=== PATIENT | male | born 1990 | race Caucasian/White ===

== ENCOUNTER 2022-09-22 19:20 | Emergency (ER) | payer MEDICAID, SELFPAY ==
--- NOTE | ~2022-09-22 | CT_ITS ---
EXAMINATION: CT SOFT TISSUE NECK WITH CONTRAST CLINICAL INFORMATION: Abscess. Swelling. COMPARISON: None available. TECHNIQUE: Following the intravenous administration of 65 mL of Omnipaque 350 intravenous contrast, helical imaging was performed in the axial plane with generation of coronal and sagittal reformatted images. This CT examination was performed using dose optimization techniques as appropriate, variously including the following: *Automated exposure control *Adjustment of mA and/or kV according to patient size (this includes techniques or standardized protocols for targeted exams where dose is matched to indication/reason for exam; i.e. extremities or head) *Use of iterative reconstruction technique DLP: 482 mGy-cm FINDINGS: Rim-enhancing focal fluid collections in the bilateral posterior cervical triangle involving the posterior aspect of the sternocleidomastoid muscles and paraspinal muscles. On the right collection measures 2.7 x 2.7 x 6.4 cm. This collection extends to the right suboccipital muscles measuring 3 x 1 x 1 cm. On the left the collection measures 1.4 x 3 x 1.5 cm. There is extension of this collection to the intramuscular compartment of the left sternocleidomastoid muscle measuring 1 x 1 x 3 cm. No significant lymphadenopathy bilaterally. There are shotty small subcentimeter lymph nodes in the posterior cervical triangle bilaterally. There is normal enhancement of the vasculature. No evidence of thrombus. The pharynx, hypopharynx and nasopharynx are normal. Normal thyroid, submandibular glands and parotid glands. Paranasal sinuses are normally aerated. The visualized portions of the orbits and intracranial structures are normal. Lung apices are normally aerated. CT/CT soft tissue neck w IV con IMPRESSION: Rim-enhancing fluid collections in the bilateral posterior cervical triangle involving the posterior aspect of the sternocleidomastoid muscles and paraspinal muscles consistent with abscesses.
[2022-09-22 19:46] VITALS: BP 122/84; PULSE 127; RESP 20; TEMP 37.4; O2SAT 98; BMI 23.0
--- NOTE | 2022-09-22 19:48 | ED_ITS ---
HPI - Neck Pain/Injury General Chief Complaint: Skin/Abscess/Foreign Body <TONI Kuo - Last Filed: 09/22/22 20:06> Stated Complaint: mono? swollen lymph nodes <TONI Kuo - Last Filed: 09/22/22 20:06> Time Seen by Provider: 09/22/22 22:32 <TONI Kuo - Last Filed: 09/22/22 20:06> Source: patient <Laisha Anderson MD - Last Filed: 09/22/22 23:47> Mode of arrival: ambulatory <Laisha Anderson MD - Last Filed: 09/22/22 23:47> Limitations: no limitations <Laisha Anderson MD - Last Filed: 09/22/22 23:47> History of Present Illness HPI Narrative: patient comes to the emergency room complaining of bilateral neck swelling, pain, erythema worsening over 2 weeks.? Reports recent exposure to mono.? Denies fever, sore throat, ear pain. patient denies IV drug use. <Laisha Anderson MD - Last Filed: 09/22/22 23:47> Related Data Allergies/Adverse Reactions: Allergies Allergy/AdvReac Type Severity Reaction Status Date / Time No Known Allergies Allergy Verified 09/22/22 19:48 <TONI Kuo - Last Filed: 09/22/22 20:06> Review of Systems Review of Systems: Constitutional : No Weight loss, No Fever, No Chills, No Night Sweats, No Fatigue, No Malaise ENT/Mouth : Up complaining of growing abscesses in the posterior/lateral aspect of the neck bilaterally. No Hearing loss, No Ear Pain, No Nasal Congestion, No Sinus Pain, No Hoarseness, No sore throat, No Rhinorrhea, No Swallowing Difficulty Eyes: No Eye Pain, No Swelling, No Redness, No Foreign Body, No Discharge, No Vision Changes Cardiovascular : No Chest Pain, No SOB, No Dyspnea on Exertion, No Orthopnea, No Edema, No Palpitations Respiratory : No Cough, No Sputum, No Wheezing, No Smoke Exposure, No Dyspnea Gastrointestinal : No Nausea, No Vomiting, No Diarrhea, No Constipation, No abdominal Pain, No Hematochezia, No Melena Genitourinary : no irregular bleeding, No Dysuria, No Urinary Frequency, No Hematuria, No Urinary Incontinence, No Urgency, No Flank Pain, No Urinary Flow Changes, No Hesitancy Musculoskeletal : No joint pain, No Myalgias, No Joint Swelling Skin : No Skin Lesions, No rash Neuro : No Weakness, No Numbness, No Paresthesias, No Loss of Consciousness, No Dizziness, No Headache Psych : No Anxiety/Panic, No Depression, No SI/HI/AH/VH, No Social Issues, Heme/Lymph: No Bruising, No Bleeding,No Lymphadenopathy Endocrine : No Polyuria, No Polydipsia, No Temperature Intolerance <Laisha Anderson MD - Last Filed: 09/22/22 23:47> [facility] Social History Social History: Social History Advance Directives: No Advance Directives Information Provided: No <TONI Kuo - Last Filed: 09/22/22 20:06> Physical Exam Vital Signs: Vital Signs: Last Vital Signs Temp 99.1 F 09/22/22 22:00 Pulse 93 09/22/22 22:28 Resp 18 09/22/22 22:28 BP 114/76 09/22/22 22:28 Pulse Ox 96 09/22/22 22:28 O2 Del Method 09/22/22 22:28 BMI result Body Mass Index 23.0 <TONI Kuo - Last Filed: 09/22/22 20:06> Vital Signs: Last Vital Signs Temp 99.1 F 09/22/22 22:00 Pulse 93 09/22/22 22:28 Resp 18 09/22/22 22:28 BP 114/76 09/22/22 22:28 Pulse Ox 96 09/22/22 22:28 O2 Del Method 09/22/22 22:28 BMI result Body Mass Index 23.0 <Laisha Anderson MD - Last Filed: 09/22/22 23:47> Const: Other: Appearance: Alert. Oriented X3. No acute distress. Eyes: Pupils equal, round and reactive to light. ENT: Pharynx normal. Neck: Patient has 2 swollen masses on both sides of the neck laterally/posteriorly. Very tender to touch, warm CVS: Normal heart rate and rhythm. Pulses normal. Normal S1 and S2 Respiratory: No respiratory distress. Breath sounds normal. No Wheezing. No rales Abdomen: Soft and nontender. No rigidity. No distention. Skin: Skin warm and dry. Normal skin color. Normal skin turgor. Extremities: No lower extremity edema. No Lacerations. No Rash Neuro: Oriented X 3. No motor deficit. No sensory deficit. Moving all extremities. No slurred speech. CN 2 through 12 grossly intact Psych: calm, cooperative, normal affect <Laisha Anderson MD - Last Filed: 09/22/22 23:47> Course Course Course Narrative: RMCristina-- 32-year-old male with no significant past medical history presenting to the ED complaining of bilateral neck swelling, pain, erythema worsening over 2 weeks. Reports recent exposure to mono. Denies fever, sore throat, ear pain PE significant for bilateral posterior neck swelling / lumps noted with fluctuance. No induration. +Neck stiffness. Handling secretions, talking in complete sentences, oropharynx WNL, TMs WNL Concern for abscesses vs cellulitis/deeper infection Labs, lactic/ blood cultures, CT, IV antibiotics ordered <TONI Kuo - Last Filed: 09/22/22 20:06> Medications Administered Discontinued Medications Generic Name Dose Route Start Last Admin Trade Name Kiranq PRN Reason Stop Dose Admin Sodium Chloride 1,000 mls @ 999 mls/hr 09/22/22 20:00 09/22/22 21:29 Ns IV 09/22/22 21:00 Infused .Q1H1M JOVANI Infusion Ceftriaxone Sodium 1 gm/ 50 mls @ 100 mls/hr 09/22/22 19:50 09/22/22 20:47 Sodium Chloride IV 09/22/22 20:19 Infused ONCE ONE Infusion Piperacillin Sod/Tazobactam 50 mls @ 100 mls/hr 09/22/22 22:51 09/22/22 23:18 Sod 3.375 gm/ Sodium Chloride IV 09/22/22 23:20 100 mls/hr ONCE ONE Administration Iohexol 100 ml 09/22/22 20:38 09/22/22 20:38 Iohexol 350 Mg/Ml 100 Ml Infus..Btl IV 09/22/22 20:39 65 ml ONCE ONE Administration Ketorolac Tromethamine 30 mg 09/22/22 22:53 09/22/22 23:17 Ketorolac Tromethamine 30 Mg/Ml Vial IVPUSH 09/22/22 22:54 30 mg ONCE ONE Administration Nicotine Polacrilex 2 mg 09/22/22 23:04 09/22/22 23:17 Nicotine Polacrilex 2 Mg Gum BUCCAL 09/22/22 23:05 2 mg ONCE ONE Administration <TONI Kuo - Last Filed: 09/22/22 20:06> Medications Administered Discontinued Medications Generic Name Dose Route Start Last Admin Trade Name Missy PRN Reason Stop Dose Admin Sodium Chloride 1,000 mls @ 999 mls/hr 09/22/22 20:00 09/22/22 21:29 Ns IV 09/22/22 21:00 Infused .Q1H1M JOVANI Infusion Ceftriaxone Sodium 1 gm/ 50 mls @ 100 mls/hr 09/22/22 19:50 09/22/22 20:47 Sodium Chloride IV 09/22/22 20:19 Infused ONCE ONE Infusion Piperacillin Sod/Tazobactam 50 mls @ 100 mls/hr 09/22/22 22:51 09/22/22 23:18 Sod 3.375 gm/ Sodium Chloride IV 09/22/22 23:20 100 mls/hr ONCE ONE Administration Iohexol 100 ml 09/22/22 20:38 09/22/22 20:38 Iohexol 350 Mg/Ml 100 Ml Infus..Btl IV 09/22/22 20:39 65 ml ONCE ONE Administration Ketorolac Tromethamine 30 mg 09/22/22 22:53 09/22/22 23:17 Ketorolac Tromethamine 30 Mg/Ml Vial IVPUSH 09/22/22 22:54 30 mg ONCE ONE Administration Nicotine Polacrilex 2 mg 09/22/22 23:04 09/22/22 23:17 Nicotine Polacrilex 2 Mg Gum BUCCAL 09/22/22 23:05 2 mg ONCE ONE Administration <Laisha Anderson MD - Last Filed: 09/22/22 23:47> Medical Decision Making Medical Decision Making MDM Narrative: - patient's white blood cell count is 18.3, lactic acid 0.8. - Patient was started on vancomycin and Zosyn. Sepsis is not suspected. -I Discussed the patient, labs and images with Dr. Beckett from general surgery, recommendations: transfer pt to a facility for ENT consult - We called [facility], [facility], [facility], all closed to transfers. next were trying [facility] accepted the patient, patient is going ED to ED, Dr. Paz accepted the pt - a CD was burned with the patient's images, being transfer with the patient - vitals: Blood pressure 114/76, pulse 93, respirations 18, temperature 99.1 degrees, oxygen saturation 96% on room air <Laisha Anderson MD - Last Filed: 09/22/22 23:47> Differential Diagnosis Differential Diagnoses: The differential diagnosis associated with the presentation includes ( abscess, lymphadenitis) <Laisha Anderson MD - Last Filed: 09/22/22 23:47> Admission/Observation Consideration of admission/observation: Escalation of care including admission/observation considered <Laisha Anderson MD - Last Filed: 09/22/22 23:47> Consult Healthcare Provider Management of the patient was discussed with: [employer] <Laisha Anderson MD - Last Filed: 09/22/22 23:47> Lab Data MDM Lab Attestation statement: I reviewed the patient's lab results. <Laisha Anderson MD - Last Filed: 09/22/22 23:47> Result Diagrams: 09/22/22 20:01 09/22/22 20:01 <TONI Kuo - Last Filed: 09/22/22 20:06> Labs: Lab Results 09/22/22 09/22/22 09/22/22 Range/Units 20:01 20:01 20:01 WBC 18.3 H (4.8-10.8) X10*3/uL RBC 4.18 L (4.60-5.80) X10*6/uL Hgb 12.9 L (14.0-18.0) g/dl Hct 37.1 L (42.0-52.0) % MCV 88.8 (80.0-98.0) fL MCH 30.9 (27.0-33.0) pg MCHC 34.8 (31.0-36.0) g/dl RDW 11.4 (11.0-16.0) % Plt Count 400 (160-400) X10*3/uL MPV 8.7 L (9.4-12.4) fL Immature Gran % (Auto) 0.5 H (0.0-0.4) % Neut % (Auto) 86.2 H (45-73) % Lymph % (Auto) 7.4 L (20-40) % [place] % (Auto) 5.1 (2-11) % Eos % (Auto) 0.6 (0-4) % Baso % (Auto) 0.2 (0-2) % Lymph # (Auto) 1.4 (1.2-4.9) X10*3/uL [place] # (Auto) 0.9 (0.1-1.2) X10*3/uL Eos # (Auto) 0.1 (0.0-0.4) X10*3/uL Baso # (Auto) 0.0 (0.0-0.2) X10*3/uL Abs Immat Gran (auto) 0.10 H (0.00-0.03) X10*3/uL Absolute Neuts (auto) 15.8 H (2.0-8.3) x10*3/uL Absolute Nucleated RBC 0.000 (0.0-0.012) X10*3/uL Nucleated RBC % (auto) 0.0 (0.0-0.2) /100WBC ESR 51 H (0-15) MM/HR Sodium 134 L (135-145) mmol/L Potassium 4.0 (3.3-5.1) mmol/L Chloride 96 (96-108) mmol/L Carbon Dioxide 26 (22-29) mmol/L Anion Gap 16 (12-20) BUN 11 (9-16) mg/dL Creatinine 1.03 (0.5-1.4) mg/dL Estim Creat Clear Calc 110.2 Estimated GFR > 60 Random Glucose 110 (60-115) mg/dL Lactic Acid (0.5-2.0) mmol/L Calcium 9.2 (8.4-10.2) mg/dL Total Bilirubin 0.7 (0.0-1.0) mg/dL Direct Bilirubin 0.2 (0.0-0.5) mg/dL AST 21 (5-37) U/L ALT 29 (0-40) U/L Alkaline Phosphatase 101 (39-117) U/L C-Reactive Protein 9.61 H (< or = 0.50) mg/dL Total Protein 7.5 (6.5-8.0) g/dL Albumin 4.3 (3.5-5.0) g/dL Monoscreen (Negative) Influenza Type A (PCR) (Negative) Influenza Type B (PCR) (Negative) RSV RNA Qual (PCR) (Negative) SARS-CoV-2 RNA (RT-PCR) (Negative) S. pyogenes GrpA JARRETT (Negative) 09/22/22 09/22/22 09/22/22 Range/Units 20:01 20:01 20:01 WBC (4.8-10.8) X10*3/uL RBC (4.60-5.80) X10*6/uL Hgb (14.0-18.0) g/dl Hct (42.0-52.0) % MCV (80.0-98.0) fL MCH (27.0-33.0) pg MCHC (31.0-36.0) g/dl RDW (11.0-16.0) % Plt Count (160-400) X10*3/uL MPV (9.4-12.4) fL Immature Gran % (Auto) (0.0-0.4) % Neut % (Auto) (45-73) % Lymph % (Auto) (20-40) % [place] % (Auto) (2-11) % Eos % (Auto) (0-4) % Baso % (Auto) (0-2) % Lymph # (Auto) (1.2-4.9) X10*3/uL [place] # (Auto) (0.1-1.2) X10*3/uL Eos # (Auto) (0.0-0.4) X10*3/uL Baso # (Auto) (0.0-0.2) X10*3/uL Abs Immat Gran (auto) (0.00-0.03) X10*3/uL Absolute Neuts (auto) (2.0-8.3) x10*3/uL Absolute Nucleated RBC (0.0-0.012) X10*3/uL Nucleated RBC % (auto) (0.0-0.2) /100WBC ESR (0-15) MM/HR Sodium (135-145) mmol/L Potassium (3.3-5.1) mmol/L Chloride (96-108) mmol/L Carbon Dioxide (22-29) mmol/L Anion Gap (12-20) BUN (9-16) mg/dL Creatinine (0.5-1.4) mg/dL Estim Creat Clear Calc Estimated GFR Random Glucose (60-115) mg/dL Lactic Acid (0.5-2.0) mmol/L Calcium (8.4-10.2) mg/dL Total Bilirubin (0.0-1.0) mg/dL Direct Bilirubin (0.0-0.5) mg/dL AST (5-37) U/L ALT (0-40) U/L Alkaline Phosphatase (39-117) U/L C-Reactive Protein (< or = 0.50) mg/dL Total Protein (6.5-8.0) g/dL Albumin (3.5-5.0) g/dL Monoscreen Negative (Negative) Influenza Type A (PCR) NEGATIVE (Negative) Influenza Type B (PCR) NEGATIVE (Negative) RSV RNA Qual (PCR) NEGATIVE (Negative) SARS-CoV-2 RNA (RT-PCR) NEGATIVE (Negative) S. pyogenes GrpA JARRETT Negative (Negative) 09/22/22 Range/Units 20:01 WBC (4.8-10.8) X10*3/uL RBC (4.60-5.80) X10*6/uL Hgb (14.0-18.0) g/dl Hct (42.0-52.0) % MCV (80.0-98.0) fL MCH (27.0-33.0) pg MCHC (31.0-36.0) g/dl RDW (11.0-16.0) % Plt Count (160-400) X10*3/uL MPV (9.4-12.4) fL Immature Gran % (Auto) (0.0-0.4) % Neut % (Auto) (45-73) % Lymph % (Auto) (20-40) % [place] % (Auto) (2-11) % Eos % (Auto) (0-4) % Baso % (Auto) (0-2) % Lymph # (Auto) (1.2-4.9) X10*3/uL [place] # (Auto) (0.1-1.2) X10*3/uL Eos # (Auto) (0.0-0.4) X10*3/uL Baso # (Auto) (0.0-0.2) X10*3/uL Abs Immat Gran (auto) (0.00-0.03) X10*3/uL Absolute Neuts (auto) (2.0-8.3) x10*3/uL Absolute Nucleated RBC (0.0-0.012) X10*3/uL Nucleated RBC % (auto) (0.0-0.2) /100WBC ESR (0-15) MM/HR Sodium (135-145) mmol/L Potassium (3.3-5.1) mmol/L Chloride (96-108) mmol/L Carbon Dioxide (22-29) mmol/L Anion Gap (12-20) BUN (9-16) mg/dL Creatinine (0.5-1.4) mg/dL Estim Creat Clear Calc Estimated GFR Random Glucose (60-115) mg/dL Lactic Acid 0.8 (0.5-2.0) mmol/L Calcium (8.4-10.2) mg/dL Total Bilirubin (0.0-1.0) mg/dL Direct Bilirubin (0.0-0.5) mg/dL AST (5-37) U/L ALT (0-40) U/L Alkaline Phosphatase (39-117) U/L C-Reactive Protein (< or = 0.50) mg/dL Total Protein (6.5-8.0) g/dL Albumin (3.5-5.0) g/dL Monoscreen (Negative) Influenza Type A (PCR) (Negative) Influenza Type B (PCR) (Negative) RSV RNA Qual (PCR) (Negative) SARS-CoV-2 RNA (RT-PCR) (Negative) S. pyogenes GrpA JARRETT (Negative) <TONI Kuo - Last Filed: 09/22/22 20:06> Lab Results 09/22/22 09/22/22 09/22/22 Range/Units 20:01 20:01 20:01 WBC 18.3 H (4.8-10.8) X10*3/uL RBC 4.18 L (4.60-5.80) X10*6/uL Hgb 12.9 L (14.0-18.0) g/dl Hct 37.1 L (42.0-52.0) % MCV 88.8 (80.0-98.0) fL MCH 30.9 (27.0-33.0) pg MCHC 34.8 (31.0-36.0) g/dl RDW 11.4 (11.0-16.0) % Plt Count 400 (160-400) X10*3/uL MPV 8.7 L (9.4-12.4) fL Immature Gran % (Auto) 0.5 H (0.0-0.4) % Neut % (Auto) 86.2 H (45-73) % Lymph % (Auto) 7.4 L (20-40) % [place] % (Auto) 5.1 (2-11) % Eos % (Auto) 0.6 (0-4) % Baso % (Auto) 0.2 (0-2) % Lymph # (Auto) 1.4 (1.2-4.9) X10*3/uL [place] # (Auto) 0.9 (0.1-1.2) X10*3/uL Eos # (Auto) 0.1 (0.0-0.4) X10*3/uL Baso # (Auto) 0.0 (0.0-0.2) X10*3/uL Abs Immat Gran (auto) 0.10 H (0.00-0.03) X10*3/uL Absolute Neuts (auto) 15.8 H (2.0-8.3) x10*3/uL Absolute Nucleated RBC 0.000 (0.0-0.012) X10*3/uL Nucleated RBC % (auto) 0.0 (0.0-0.2) /100WBC ESR 51 H (0-15) MM/HR Sodium 134 L (135-145) mmol/L Potassium 4.0 (3.3-5.1) mmol/L Chloride 96 (96-108) mmol/L Carbon Dioxide 26 (22-29) mmol/L Anion Gap 16 (12-20) BUN 11 (9-16) mg/dL Creatinine 1.03 (0.5-1.4) mg/dL Estim Creat Clear Calc 110.2 Estimated GFR > 60 Random Glucose 110 (60-115) mg/dL Lactic Acid (0.5-2.0) mmol/L Calcium 9.2 (8.4-10.2) mg/dL Total Bilirubin 0.7 (0.0-1.0) mg/dL Direct Bilirubin 0.2 (0.0-0.5) mg/dL AST 21 (5-37) U/L ALT 29 (0-40) U/L Alkaline Phosphatase 101 (39-117) U/L C-Reactive Protein 9.61 H (< or = 0.50) mg/dL Total Protein 7.5 (6.5-8.0) g/dL Albumin 4.3 (3.5-5.0) g/dL Monoscreen (Negative) Influenza Type A (PCR) (Negative) Influenza Type B (PCR) (Negative) RSV RNA Qual (PCR) (Negative) SARS-CoV-2 RNA (RT-PCR) (Negative) S. pyogenes GrpA JARRETT (Negative) 09/22/22 09/22/22 09/22/22 Range/Units 20:01 20:01 20:01 WBC (4.8-10.8) X10*3/uL RBC (4.60-5.80) X10*6/uL Hgb (14.0-18.0) g/dl Hct (42.0-52.0) % MCV (80.0-98.0) fL MCH (27.0-33.0) pg MCHC (31.0-36.0) g/dl RDW (11.0-16.0) % Plt Count (160-400) X10*3/uL MPV (9.4-12.4) fL Immature Gran % (Auto) (0.0-0.4) % Neut % (Auto) (45-73) % Lymph % (Auto) (20-40) % [place] % (Auto) (2-11) % Eos % (Auto) (0-4) % Baso % (Auto) (0-2) % Lymph # (Auto) (1.2-4.9) X10*3/uL [place] # (Auto) (0.1-1.2) X10*3/uL Eos # (Auto) (0.0-0.4) X10*3/uL Baso # (Auto) (0.0-0.2) X10*3/uL Abs Immat Gran (auto) (0.00-0.03) X10*3/uL Absolute Neuts (auto) (2.0-8.3) x10*3/uL Absolute Nucleated RBC (0.0-0.012) X10*3/uL Nucleated RBC % (auto) (0.0-0.2) /100WBC ESR (0-15) MM/HR Sodium (135-145) mmol/L Potassium (3.3-5.1) mmol/L Chloride (96-108) mmol/L Carbon Dioxide (22-29) mmol/L Anion Gap (12-20) BUN (9-16) mg/dL Creatinine (0.5-1.4) mg/dL Estim Creat Clear Calc Estimated GFR Random Glucose (60-115) mg/dL Lactic Acid (0.5-2.0) mmol/L Calcium (8.4-10.2) mg/dL Total Bilirubin (0.0-1.0) mg/dL Direct Bilirubin (0.0-0.5) mg/dL AST (5-37) U/L ALT (0-40) U/L Alkaline Phosphatase (39-117) U/L C-Reactive Protein (< or = 0.50) mg/dL Total Protein (6.5-8.0) g/dL Albumin (3.5-5.0) g/dL Monoscreen Negative (Negative) Influenza Type A (PCR) NEGATIVE (Negative) Influenza Type B (PCR) NEGATIVE (Negative) RSV RNA Qual (PCR) NEGATIVE (Negative) SARS-CoV-2 RNA (RT-PCR) NEGATIVE (Negative) S. pyogenes GrpA JARRETT Negative (Negative) 09/22/22 Range/Units 20:01 WBC (4.8-10.8) X10*3/uL RBC (4.60-5.80) X10*6/uL Hgb (14.0-18.0) g/dl Hct (42.0-52.0) % MCV (80.0-98.0) fL MCH (27.0-33.0) pg MCHC (31.0-36.0) g/dl RDW (11.0-16.0) % Plt Count (160-400) X10*3/uL MPV (9.4-12.4) fL Immature Gran % (Auto) (0.0-0.4) % Neut % (Auto) (45-73) % Lymph % (Auto) (20-40) % [place] % (Auto) (2-11) % Eos % (Auto) (0-4) % Baso % (Auto) (0-2) % Lymph # (Auto) (1.2-4.9) X10*3/uL [place] # (Auto) (0.1-1.2) X10*3/uL Eos # (Auto) (0.0-0.4) X10*3/uL Baso # (Auto) (0.0-0.2) X10*3/uL Abs Immat Gran (auto) (0.00-0.03) X10*3/uL Absolute Neuts (auto) (2.0-8.3) x10*3/uL Absolute Nucleated RBC (0.0-0.012) X10*3/uL Nucleated RBC % (auto) (0.0-0.2) /100WBC ESR (0-15) MM/HR Sodium (135-145) mmol/L Potassium (3.3-5.1) mmol/L Chloride (96-108) mmol/L Carbon Dioxide (22-29) mmol/L Anion Gap (12-20) BUN (9-16) mg/dL Creatinine (0.5-1.4) mg/dL Estim Creat Clear Calc Estimated GFR Random Glucose (60-115) mg/dL Lactic Acid 0.8 (0.5-2.0) mmol/L Calcium (8.4-10.2) mg/dL Total Bilirubin (0.0-1.0) mg/dL Direct Bilirubin (0.0-0.5) mg/dL AST (5-37) U/L ALT (0-40) U/L Alkaline Phosphatase (39-117) U/L C-Reactive Protein (< or = 0.50) mg/dL Total Protein (6.5-8.0) g/dL Albumin (3.5-5.0) g/dL Monoscreen (Negative) Influenza Type A (PCR) (Negative) Influenza Type B (PCR) (Negative) RSV RNA Qual (PCR) (Negative) SARS-CoV-2 RNA (RT-PCR) (Negative) S. pyogenes GrpA JARRETT (Negative) <Laisha Anderson MD - Last Filed: 09/22/22 23:47> Independent Interpretation I performed an independent interpretation of an: CT Scan ( interpretation of CT scan: Therefore aphthous is visualized, 2 on the right side posteriorly and 2 abscesses on the left side laterally posteriorly) <Laisha Anderson MD - Last Filed: 09/22/22 23:47> Radiology Impression Discussion of test interpretation with radiology: I have reviewed the radiologist's reading. <Laisha Anderson MD - Last Filed: 09/22/22 23:47> Radiologist Impression: FINDINGS: Rim-enhancing focal fluid collections in the bilateral posterior cervical triangle involving the posterior aspect of the sternocleidomastoid muscles and paraspinal muscles. On the right collection measures 2.7 x 2.7 x 6.4 cm. This collection extends to the right suboccipital muscles measuring 3 x 1 x 1 cm. On the left the collection measures 1.4 x 3 x 1.5 cm. There is extension of this collection to the intramuscular compartment of the left sternocleidomastoid muscle measuring 1 x 1 x 3 cm. No significant lymphadenopathy bilaterally. There are shotty small subcentimeter lymph nodes in the posterior cervical triangle bilaterally. There is normal enhancement of the vasculature. No evidence of thrombus. The pharynx, hypopharynx and nasopharynx are normal. Normal thyroid, submandibular glands and parotid glands. Paranasal sinuses are normally aerated. The visualized portions of the orbits and intracranial structures are normal. Lung apices are normally aerated. CT/CT soft tissue neck w IV con IMPRESSION: Rim-enhancing fluid collections in the bilateral posterior cervical triangle involving the posterior aspect of the sternocleidomastoid muscles and paraspinal muscles consistent with abscesses. ? <Laisha Anderson MD - Last Filed: 09/22/22 23:47> Discharge Plan Discharge Clinical Impression: Abscess of multiple sites of head and neck <TONI Kuo - Last Filed: 09/22/22 20:06> Patient Disposition: [facility] <TONI Kuo - Last Filed: 09/22/22 20:06> Transfer Details: [facility] ED to ED <TONI Kuo - Last Filed: 09/22/22 20:06> [facility] ED to ED <Laisha Anderson MD - Last Filed: 09/22/22 23:47>
[2022-09-22] MEDS: cefTRIAXone sodium 1 GM in 0.9 % Sodium Chloride 50 ML IV (20:04)
[2022-09-22] MEDS: 0.9 % Sodium Chloride 1,000 ML 999 ML IV (20:04)
[2022-09-22 20:09] LABS: Basophils Percent Auto 0.2 % (0-2); Eosinophils Absolute Auto 0.1 X10*3/uL (0.0-0.4); Eosinophils Percent Auto 0.6 % (0-4); Hematocrit 37.1 % (42.0-52.0); Hemoglobin 12.9 g/dl (14.0-18.0); Imm Gran Pct Auto 0.5 % (0.0-0.4); Lymphocytes Absolute Auto 1.4 X10*3/uL (1.2-4.9); Lymphocytes Percent Auto 7.4 % (20-40); MANUAL DIFF FLAG NO; Mean Corpuscular HGB Conc 34.8 g/dl (31.0-36.0); Mean Corpuscular Hemoglobin 30.9 pg (27.0-33.0); Mean Corpuscular Volume 88.8 fL (80.0-98.0); Mean Platelet Volume 8.7 fL (9.4-12.4); Monocytes Absolute Auto 0.9 X10*3/uL (0.1-1.2); Monocytes Percent Auto 5.1 % (2-11); Neutrophils Absolute Auto 15.8 x10*3/uL (2.0-8.3); Neutrophils Percent Auto 86.2 % (45-73); Platelet Count 400 X10*3/uL (160-400); Red Blood Count 4.18 X10*6/uL (4.60-5.80); Red Cell Distribution Width 11.4 % (11.0-16.0); White Blood Count 18.3 X10*3/uL (4.8-10.8)
[2022-09-22 20:20] LABS: Lactic Acid 0.8 mmol/L (0.5-2.0)
[2022-09-22 20:21] LABS: Monotest Negative (Negative)
[2022-09-22 20:24] LABS: Alanine Aminotransferase 29 U/L (0-40); Albumin Level 4.3 g/dL (3.5-5.0); Alkaline Phosphatase 101 U/L (39-117); Anion Gap 16 (12-20); Aspartate Amino Transferase 21 U/L (5-37); Bilirubin Direct 0.2 mg/dL (0.0-0.5); Bilirubin Total 0.7 mg/dL (0.0-1.0); Blood Urea Nitrogen 11 mg/dL (9-16); C Reactive Protein 9.61 mg/dL (< or = 0.50); Calcium 9.2 mg/dL (8.4-10.2); Carbon Dioxide 26 mmol/L (22-29); Chloride 96 mmol/L (96-108); Creatinine Clr Calc Pharmacy 110.2; Estimated Glomerular Filt Rate > 60; Glucose Random 110 mg/dL (60-115); Sodium 134 mmol/L (135-145); Total Protein 7.5 g/dL (6.5-8.0)
[2022-09-22] MEDS: iohexoL 350 MG/ML 100 ML INFUS..BTL IV (20:38)
[2022-09-22 20:46] LABS: Erythrocyte Sedimentation Rate 51 MM/HR (0-15)
[2022-09-22 21:00] VITALS: BP 124/88; PULSE 113; RESP 20; O2SAT 97
[2022-09-22 21:00] LABS: Influenza A PCR NEGATIVE (Negative); Influenza B PCR NEGATIVE (Negative); Resp Syncy Virus RNA Qual PCR NEGATIVE (Negative); SARS COV2 PCR INHOUSE NEGATIVE (Negative)
--- NOTE | 2022-09-22 21:12 | PC.NURSE ---
18g IV infusing NS as this time, pt rec 1 dose of [id number] awating lab and CT results
[2022-09-22 21:17] LABS: IDNOW Serial# 6674DD1D; Strep A Nucleic Acid Negative (Negative)
[2022-09-22 22:00] VITALS: BP 118/73; PULSE 95; RESP 18; TEMP 37.3; O2SAT 97
[2022-09-22 22:25] VITALS: BP 122/78; PULSE 89; RESP 17; O2SAT 98
[2022-09-22 22:28] VITALS: BP 114/76; PULSE 93; RESP 18; O2SAT 96
--- NOTE | 2022-09-22 23:01 | PC.NURSE ---
spoke with pt about CT results, allowed him to express concerns and frustrations, pt sts he is having 7/10 pain at rest 10/10 with movement. pt requests to smoke, advised that cannot be done, offered nicotine gum, pt agreed, provider aware and will place order. pt and S.O at bedside understand that pt may be admitted to [facility] for surgery or potentially transferred for further eval and tx both parties verbalize understanding. call silva within reach [facility].
[2022-09-22] MEDS: Ketorolac Tromethamine 30 MG/ML VIAL IVPUSH (23:17)
[2022-09-22] MEDS: Nicotine Polacrilex 2 MG GUM BUCCAL (23:17)
[2022-09-22] MEDS: Piperacillin Sodium/Tazobactam 3.375 GM in 0.9 % Sodium Chloride 50 ML IV (23:18)
--- NOTE | 2022-09-22 23:47 | PC.NURSE ---
Vancomycin has been started via IV pump, pt reports that the toradol did no touch his pain (MD aware). Pt is aware of his transfer to [place] and is on board at this time, awaiting ambulance at this time. No new orders, continue plan of care
== END 2022-09-23 00:14 | disposition short-term general hospital (02) ==
PROVIDERS: Physician Assistant; Emergency Provider Emergency Medicine
DX: L02.11 Cutaneous abscess of neck (principal); L02.811 Cutaneous abscess of head [any part, except face]; Z20.822 Contact with and (suspected) exposure to COVID-19; Z20.828 Contact with and (suspected) exposure to other viral communicable diseases; F17.210 Nicotine dependence, cigarettes, uncomplicated
CPT/HCPCS: 0241U; 36415; 70491; 80048; 80076; 83605; 85025; 85652; 86140; 86308; 87040; 87651; 96361; 96365; 96375; 99285; J0696; J1885; J2543; J3370; Q9967

== ENCOUNTER 2023-10-18 01:32 | Emergency (ER) | payer SELFPAY ==
--- NOTE | 2023-10-18 | ECG_ITS ---
Test Reason : OVERDOSED Blood Pressure : / mmHG Vent. Rate : 114 BPM Atrial Rate : 114 BPM P-R Int : 144 ms QRS Dur : 094 ms QT Int : 326 ms P-R-T Axes : 055 055 047 degrees QTc Int : 449 ms Sinus tachycardia Otherwise normal ECG No previous ECGs available Referred By: Carl Bates Electronically Signed By:RICHARD MEAD MD
--- NOTE | ~2023-10-18 | CT_ITS ---
EXAMINATION: CT HEAD WITHOUT CONTRAST CT CERVICAL SPINE WITHOUT CONTRAST CLINICAL INFORMATION: Syncope. Trauma. Pain. COMPARISON: None available. TECHNIQUE: Contiguous axial imaging was performed through the head and cervical spine without intravenous administration of contrast. Sagittal and coronal reformatted images also obtained. This CT examination was performed using dose optimization techniques as appropriate, variously including the following: *Automated exposure control *Adjustment of mA and/or kV according to patient size (this includes techniques or standardized protocols for targeted exams where dose is matched to indication/reason for exam; i.e. extremities or head) *Use of iterative reconstruction technique DLP: 1166 mGy-cm FINDINGS: The lateral, third and fourth ventricles are normally outlined. The cortical sulci and basal cisterns are normally outlined as well. There is no acute territorial defect, hemorrhage or midline shift. The extra-axial spaces are unremarkable. Calvarium: Intact. Maxillofacial sinuses and mastoids: There is a left maxillary sinus opacity and mucosal thickening. The remaining visualized maxillofacial sinuses and mastoids are clear. Cervical spine: There is straightening of the expected cervical spine curvature. The disc spaces are maintained. The spinal canal and neuroforamen are patent. The bone mineralization is normal. There is no fracture. The soft tissues are unremarkable. The visualized upper lung eason are clear. CT/CT head/brain wo IV con IMPRESSION: 1. No acute intracranial pathology. 2. No evidence of acute cervical spine traumatic injury.
--- NOTE | ~2023-10-18 | XR_ITS ---
EXAMINATION: XR CHEST CLINICAL INFORMATION: Syncope. Hypoxia. COMPARISON: None available. TECHNIQUE: Frontal view of the chest was obtained. FINDINGS: No significant abnormality is noted involving the heart, lungs, mediastinum, bony thorax or soft tissues. XR/XR chest 1V IMPRESSION: Unremarkable examination.
--- NOTE | ~2023-10-18 | CT_ITS ---
EXAMINATION: CT HEAD WITHOUT CONTRAST CT CERVICAL SPINE WITHOUT CONTRAST CLINICAL INFORMATION: Syncope. Trauma. Pain. COMPARISON: None available. TECHNIQUE: Contiguous axial imaging was performed through the head and cervical spine without intravenous administration of contrast. Sagittal and coronal reformatted images also obtained. This CT examination was performed using dose optimization techniques as appropriate, variously including the following: *Automated exposure control *Adjustment of mA and/or kV according to patient size (this includes techniques or standardized protocols for targeted exams where dose is matched to indication/reason for exam; i.e. extremities or head) *Use of iterative reconstruction technique DLP: 1166 mGy-cm FINDINGS: The lateral, third and fourth ventricles are normally outlined. The cortical sulci and basal cisterns are normally outlined as well. There is no acute territorial defect, hemorrhage or midline shift. The extra-axial spaces are unremarkable. Calvarium: Intact. Maxillofacial sinuses and mastoids: There is a left maxillary sinus opacity and mucosal thickening. The remaining visualized maxillofacial sinuses and mastoids are clear. Cervical spine: There is straightening of the expected cervical spine curvature. The disc spaces are maintained. The spinal canal and neuroforamen are patent. The bone mineralization is normal. There is no fracture. The soft tissues are unremarkable. The visualized upper lung eason are clear. CT/CT cervical spine wo IV con IMPRESSION: 1. No acute intracranial pathology. 2. No evidence of acute cervical spine traumatic injury.
--- NOTE | 2023-10-18 01:39 | ED_ITS ---
HPI - Overdose General Chief Complaint: Overdose Stated Complaint: heroin overdose Time Seen by Provider: 10/18/23 01:38 Source: patient Mode of arrival: EMS Limitations: no limitations History of Present Illness HPI Narrative: 33-year-old male with a history of anxiety who presents emergency department for evaluation of syncope/loss of consciousness. Information came from EMS and from the patient's , Francheska who is here in the emergency department. Patient has no memory of the event. According to his , the patient cut his left pinky finger with a chainsaw more than 24 hours ago with a chain saw. Patient was in the bathroom changing the dressing and his finger was bleeding. Patient came out of the bathroom and appeared to be woozy and pale. He was confused and the thought he was delusional. He thought his was his mother and he was not making sense. The patient then went to his knees and put his head and upper body on the bed. He then became very diaphoretic and lost consciousness. When he lost consciousness his body fell off the bed and he struck the back of his head on the dresser. He was in a sitting slumped position and his states that he turned blue. She called 911 and they advised her to lie him flat to start chest compressions which she did. When the paramedics arrived on the scene the report that his was performing CPR. The patient's pupils were pinpoint and he had strong pulses with agonal breathing. He was given 6 mg of Narcan intranasally which caused him to wake up. According to the patient and his the patient has had similar syncopal episodes in the past when he is seen blood and when he has had IV blood draws. Patient does not know when his last tetanus shot was given. Related Data Allergies Allergy/AdvReac Type Severity Reaction Status Date / Time No Known Allergies Allergy Verified 10/18/23 01:45 Review of Systems 2 Review of Systems: Yes all other systems are reviewed and are negative [facility] Past Medical History [facility] Narrative: Social history: Patient does smoke cigarettes. He denies alcohol use. He denies drug use. Social History Social History Smoked in Last 30 Days: Yes Use of substances other than those prescribed or required for medical reasons: No Advance Directives: No Advance Directives Information Provided: Yes Physical Exam 2 Vital Signs: Vital Signs: Last Vital Signs Temp 98.3 F 10/18/23 06:59 Pulse 60 10/18/23 06:59 Resp 15 10/18/23 06:59 BP 106/45 L 10/18/23 06:59 Pulse Ox 96 10/18/23 06:59 O2 Del Method Room Air 10/18/23 06:59 O2 Flow Rate 4 10/18/23 03:36 BMI result Body Mass Index 18.3 Vital signs revealed an elevated respiratory rate of 24 and elevated heart rate of 115, low O2 saturation of 90% on room air Exam: General: Awake, alert in no distress Head: Normocephalic, patient has a superficial abrasion to the occiput with no hematoma EENT: PERRL, Lids normal, sclera normal, conjunctiva normal, nose normal , ears normal, throat without erythema or exudates Neck: Supple, no adenopathy Lung: breath sounds symmetric, no wheezing, rales or rhonchi Chest: symmetric movement, nontender Heart: regular rate and rhythm, normal S1, S2 no murmurs or rubs Abdomen: soft, non-tender, nondistended, normal bowel sounds Back: no vertebral tenderness, no CVAT Extremities: Patient has a C-shaped laceration to the tip of his left 5th finger which is not actively bleeding, moves all extremities symmetrically Neuro: Awake, alert, oriented, normal speech, cranial nerves intact, moves all extremities symmetrically Psych: Pleasant, cooperative Medications Administered Discontinued Medications Generic Name Dose Route Start Last Admin Trade Name Freq PRN Reason Stop Dose Admin Bacitracin 1 appl 10/18/23 02:47 10/18/23 03:40 Bacitracin Oint 0.9 Gm Packet TOPICAL 10/18/23 02:48 1 appl ONCE ONE Administration Protocol Diphtheria/Tetanus/Acell Pertussis 0.5 ml 10/18/23 02:47 10/18/23 03:40 Diphth,Pertus(Acell),Tet Adult 0.5 Ml Syringe IM 10/18/23 02:48 0.5 ml .ONCE ONE Administration Sodium Chloride 1,000 mls @ 999 mls/hr 10/18/23 02:47 10/18/23 07:10 Ns IV 10/18/23 03:47 Infused .Q1H1M STA Infusion Medical Decision Making Medical Decision Making [facility] Narrative: 33-year-old male with a history of anxiety who presents emergency department for evaluation of syncope/loss of consciousness. The patient cut his left pinky finger with a chainsaw more than 24 hours ago with a chain saw. Patient was in the bathroom changing the dressing and his finger was bleeding. Patient came out of the bathroom and appeared to be woozy , pale, was confused, he lied his head and upper torso 1 the bed and then became diaphoretic, had a syncopal episode, fell backwards and struck his head on the dresser. Patient was sitting upright in his slumped position in his states that he became blue, 9 1 advised the to lying flat to start CPR. Paramedics noted the patient's pupils were pinpoint and when they gave him 6 mg of Narcan the patient woke up. Patient has no memory of the events. Does not know when his last tetanus shot was given. Patient has history of syncopal episodes secondary to blood draw and seeing blood. Vital signs did reveal an elevated heart rate and elevated respiratory rate. Patient also had a low O2 saturation of 90% on room air. Patient does have a small abrasion to the occipital area of his head secondary to the head strike against the dresser, without a hematoma or tenderness palpation in this area. Patient does have a C-shaped laceration to the tip of his left index finger which is not actively bleeding-this wound is greater than 24 hours old. Differential diagnosis: ?Includes but is not limited to vasovagal syncope, arrhythmia, opiate overdose, closed head injury, skull fracture, intracranial bleed, anemia, electrolyte abnormalities Following evaluation was ordered: CBC, CMP, lipase, PTT, troponin, ethanol level, drug screen urine, chest x-ray one view, CT scan of the head and cervical spine without IV contrast, EKG Patient was initially treated with the following: IV insert, paper pattern inspector, O2 saturation monitor, normal saline IV x1 L, oxygen 4 L via nasal cannula, Tdap, bacitracin to left 5th finger Course: Lab Data 10/18/23 03:38 10/18/23 03:38 Labs: Lab Results 10/18/23 10/18/23 10/18/23 Range/Units 03:38 04:41 06:45 WBC 14.3 H (4.8-10.8) X10*3/uL RBC 4.27 L (4.60-5.80) X10*6/uL Hgb 13.2 L (14.0-18.0) g/dl Hct 37.2 L (42.0-52.0) % MCV 87.1 (80.0-98.0) fL MCH 30.9 (27.0-33.0) pg MCHC 35.5 (31.0-36.0) g/dl RDW 11.6 (11.0-16.0) % Plt Count 196 D (160-400) X10*3/uL MPV 9.5 (9.4-12.4) fL Immature Gran % (Auto) 0.4 (0.0-0.4) % Neut % (Auto) 85.8 H (45-73) % Lymph % (Auto) 6.4 L (20-40) % [place] % (Auto) 7.1 (2-11) % Eos % (Auto) 0.1 (0-4) % Baso % (Auto) 0.2 (0-2) % Lymph # (Auto) 0.9 L (1.2-4.9) X10*3/uL [place] # (Auto) 1.0 (0.1-1.2) X10*3/uL Eos # (Auto) 0.0 (0.0-0.4) X10*3/uL Baso # (Auto) 0.0 (0.0-0.2) X10*3/uL Abs Immat Gran (auto) 0.06 H (0.00-0.03) X10*3/uL Absolute Neuts (auto) 12.3 H (2.0-8.3) x10*3/uL Absolute Nucleated RBC 0.000 (0.0-0.012) X10*3/uL Nucleated RBC % (auto) 0.0 (0.0-0.2) /100WBC APTT 32.7 (26.0-36.8) SEC Sodium 141 (135-145) mmol/L Potassium 4.3 (3.3-5.1) mmol/L Chloride 104 (96-108) mmol/L Carbon Dioxide 29 (22-29) mmol/L Anion Gap 12 (12-20) BUN 20 H (9-16) mg/dL Creatinine 1.00 (0.5-1.4) mg/dL Estim Creat Clear Calc 89.3 Estimated GFR > 60 POC Glucose 101 (60-115) mg/dL Random Glucose 50 L* (60-115) mg/dL Calcium 9.4 (8.4-10.2) mg/dL Total Bilirubin 0.3 (0.0-1.0) mg/dL AST 38 H (5-37) U/L ALT 25 (0-40) U/L Alkaline Phosphatase 72 (39-117) U/L Troponin I High Sens 19.7 46.0 H D (<3.5-35.0) ng/L Total Protein 7.1 (6.5-8.0) g/dL Albumin 4.7 (3.5-5.0) g/dL Lipase 12 (8-78) U/L Ethyl Alcohol < 10 mg/dL 10/18/23 10/18/23 Range/Units 07:44 Unknown WBC (4.8-10.8) X10*3/uL RBC (4.60-5.80) X10*6/uL Hgb (14.0-18.0) g/dl Hct (42.0-52.0) % MCV (80.0-98.0) fL MCH (27.0-33.0) pg MCHC (31.0-36.0) g/dl RDW (11.0-16.0) % Plt Count (160-400) X10*3/uL MPV (9.4-12.4) fL Immature Gran % (Auto) (0.0-0.4) % Neut % (Auto) (45-73) % Lymph % (Auto) (20-40) % [place] % (Auto) (2-11) % Eos % (Auto) (0-4) % Baso % (Auto) (0-2) % Lymph # (Auto) (1.2-4.9) X10*3/uL [place] # (Auto) (0.1-1.2) X10*3/uL Eos # (Auto) (0.0-0.4) X10*3/uL Baso # (Auto) (0.0-0.2) X10*3/uL Abs Immat Gran (auto) (0.00-0.03) X10*3/uL Absolute Neuts (auto) (2.0-8.3) x10*3/uL Absolute Nucleated RBC (0.0-0.012) X10*3/uL Nucleated RBC % (auto) (0.0-0.2) /100WBC APTT (26.0-36.8) SEC Sodium (135-145) mmol/L Potassium (3.3-5.1) mmol/L Chloride (96-108) mmol/L Carbon Dioxide (22-29) mmol/L Anion Gap (12-20) BUN (9-16) mg/dL Creatinine (0.5-1.4) mg/dL Estim Creat Clear Calc Estimated GFR POC Glucose 89 (60-115) mg/dL Random Glucose (60-115) mg/dL Calcium (8.4-10.2) mg/dL Total Bilirubin (0.0-1.0) mg/dL AST (5-37) U/L ALT (0-40) U/L Alkaline Phosphatase (39-117) U/L Troponin I High Sens Cancelled (<3.5-35.0) ng/L Total Protein (6.5-8.0) g/dL Albumin (3.5-5.0) g/dL Lipase (8-78) U/L Ethyl Alcohol mg/dL Radiology Impression Discussion of test interpretation with radiology: I have reviewed the radiologist's reading. Radiologist Impression: CT head/brain and cervical spine wo IV con IMPRESSION: 1. No acute intracranial pathology. 2. No evidence of acute cervical spine traumatic injury. Dictated By: Junior Love XR chest 1V IMPRESSION: Unremarkable examination. Dictated By: Junior Love Independent Historian Clinical information obtained from an independent historian. History obtained from or confirmed by: Spouse Discharge Plan Discharge Clinical Impression: Vasovagal syncope, Closed head injury, Finger laceration, Elevated troponin I level, Hypoglycemia, Left against medical advice Patient Disposition: Left Against Medical Advice Instructions: Syncope (ED), Head Injury (ED) Additional Instructions: The CT scan of your head revealed no skull fracture or bleeding in your head from your fall. Your EKGs were unremarkable. Your blood sugar was low. Your high sensitivity troponin I was initially detectable but not elevated at 19.7 (less than 35 is normal in men). Your 3 hour repeat high sensitivity troponin I increased to 46.0 which is a greater than 50% increased from your 1st value. This increase in value was concerning for heart attack/heart muscle injury and I wanted you to stay in the emergency department to get a repeat troponin. However, you understand the risks that you can go home and secondary to a heart attack but despite this risk you still want to leave against medical advice. If you change your mind, please call 911 or return to the emergency department so that we can re-evaluate you to determine if you had a heart attack or not Apply bacitracin once a day to your finger laceration. Watch for signs of infection which would include increased redness, drainage of pus, red streaks going away from the wound or increased pain. Follow-up with your doctor in 2 days. Please return to the emergency department if your symptoms get worse or if you develop any symptoms that are concerning to you. Referrals: Fausto Strauss MD [Physician] - 1 week (Syncope, elevated troponins, left AMA) Stand Alone Forms: Against Medical Advice Print Language: Tongan
[2023-10-18 01:40] VITALS: BP 129/82; BP 148/90; PULSE 115; PULSE 133; RESP 24; TEMP 36.4; O2SAT 100; O2SAT 90; BMI 18.3
--- NOTE | 2023-10-18 01:59 | MHC.EDTECH ---
PATIENT WAS BIBA FROM HOME ,VITALS TAKEN ,AND WAS READ BY PROVIDER ,PATIENT WAS HOOKED UP TO COMPOSITE WORKER .PATIENT CAME HERE WITH ONLY A BOXER ON ,NO OTHER CLOTHING ,PT WAS CHANGE INTO HOSPITAL ATTIRE ,WARM VLANKET GIVEN .
--- NOTE | 2023-10-18 02:08 | PC.NURSE ---
Pt alert and oriented to self. Not really speaking and mainly answering closed ended questions. Denies any pain. Denies SI/HI. Reports no alcohol or drug use besides smoking Marijuana. States not remembering why he is in the ED. O2 sat 88-89% on 2L NC. O2 increased to 4L NC. Current O2 93%. No respiratory distress noted. RR 20. Pending physician eval.
--- NOTE | 2023-10-18 02:19 | PC.NURSE ---
at bedside reports pt injured finger on the left hand a few days ago with chain saw. Reports once pt removed the bandage from the finger pt might have passed out and not overdosing on substance. Pt is unable to provide urine sample at this time. Monitoring is ongoing.
--- NOTE | 2023-10-18 03:30 | MHC.EDTECH ---
PATIENT BROUGHT IN CLOTHES FROM HOME FOR PATIENT ,ITS AT BEDSIDE .
[2023-10-18 03:36] VITALS: BP 108/65; PULSE 81; RESP 14; TEMP 36.9; O2SAT 97
[2023-10-18] MEDS: Bacitracin Oint 0.9 GM PACKET 1 APPL TOPICAL (03:40)
[2023-10-18] MEDS: Diphth,Pertus(ACell),Tet Adult 0.5 ML SYRINGE IM (03:40)
[2023-10-18] MEDS: 0.9 % Sodium Chloride 1,000 ML 999 ML IV (03:40)
[2023-10-18 03:42] LABS: MANUAL DIFF FLAG NO
[2023-10-18 03:43] LABS: Basophils Percent Auto 0.2 % (0-2); Eosinophils Percent Auto 0.1 % (0-4); Hematocrit 37.2 % (42.0-52.0); Hemoglobin 13.2 g/dl (14.0-18.0); Imm Gran Abs Auto 0.06 X10*3/uL (0.00-0.03); Imm Gran Pct Auto 0.4 % (0.0-0.4); Lymphocytes Absolute Auto 0.9 X10*3/uL (1.2-4.9); Lymphocytes Percent Auto 6.4 % (20-40); Mean Corpuscular HGB Conc 35.5 g/dl (31.0-36.0); Mean Corpuscular Hemoglobin 30.9 pg (27.0-33.0); Mean Corpuscular Volume 87.1 fL (80.0-98.0); Mean Platelet Volume 9.5 fL (9.4-12.4); Monocytes Percent Auto 7.1 % (2-11); Neutrophils Absolute Auto 12.3 x10*3/uL (2.0-8.3); Neutrophils Percent Auto 85.8 % (45-73); Platelet Count 196 X10*3/uL (160-400); Red Blood Count 4.27 X10*6/uL (4.60-5.80); Red Cell Distribution Width 11.6 % (11.0-16.0); White Blood Count 14.3 X10*3/uL (4.8-10.8)
[2023-10-18 03:51] LABS: Partial Thromboplastin Time 32.7 SEC (26.0-36.8)
[2023-10-18 04:05] LABS: Alanine Aminotransferase 25 U/L (0-40); Albumin Level 4.7 g/dL (3.5-5.0); Alkaline Phosphatase 72 U/L (39-117); Anion Gap 12 (12-20); Aspartate Amino Transferase 38 U/L (5-37); Bilirubin Total 0.3 mg/dL (0.0-1.0); Blood Urea Nitrogen 20 mg/dL (9-16); Calcium 9.4 mg/dL (8.4-10.2); Carbon Dioxide 29 mmol/L (22-29); Chloride 104 mmol/L (96-108); Creatinine Clr Calc Pharmacy 89.3; Estimated Glomerular Filt Rate > 60; Ethanol < 10 mg/dL; Glucose Random 50 mg/dL (60-115); Lipase 12 U/L (8-78); Potassium 4.3 mmol/L (3.3-5.1); Sodium 141 mmol/L (135-145); Total Protein 7.1 g/dL (6.5-8.0); Troponin-I High Sensitivity 19.7 ng/L (<3.5-35.0)
--- NOTE | 2023-10-18 04:14 | MHC.EDTECH ---
PATIENT STILL NOT ABLE TO GIVE URINE SAMPLE ,RN AWARE .
--- NOTE | 2023-10-18 04:15 | PC.NURSE ---
Critical lab result received: Blood glucose 50. Dr. Mathias notified. New order to provide food and juice. Pt provided with 8oz orange juice and one sunbutter and jelly sandwich. Pt aware of plan of care.
[2023-10-18 04:48] LABS: Glucose, Whole Blood 101 mg/dL (60-115)
--- NOTE | 2023-10-18 04:49 | MHC.EDTECH ---
patient still not able to get urine sample ,rn aware .
[2023-10-18 06:59] VITALS: BP 106/45; PULSE 60; RESP 15; TEMP 36.8; O2SAT 96
[2023-10-18 07:48] LABS: Glucose, Whole Blood 89 mg/dL (60-115)
[2023-10-18 08:34] VITALS: BP 111/62; PULSE 84; RESP 13; TEMP 36.6; O2SAT 95
[2023-10-18 09:11] VITALS: BP 111/62; PULSE 84; RESP 13; TEMP 36.6; O2SAT 95
--- NOTE | 2023-10-18 09:12 | PC.NURSE ---
IV removed. pt signed AMA form. pt d/c'd.
== END 2023-10-18 09:12 | disposition left against medical advice (07) ==
PROVIDERS: Emergency Provider Emergency Medicine Emergency Medical Services
DX: S61.217A Laceration without foreign body of left little finger without damage to nail, initial encounter (principal); S09.90XA Unspecified injury of head, initial encounter; S60.512A Abrasion of left hand, initial encounter; T40.1X1A Poisoning by heroin, accidental (unintentional), initial encounter; R55 Syncope and collapse; R51.9 Headache, unspecified; F41.9 Anxiety disorder, unspecified; R07.89 Other chest pain; M54.2 Cervicalgia; R41.82 Altered mental status, unspecified; R00.0 Tachycardia, unspecified; W29.3XXA Contact with powered garden and outdoor hand tools and machinery, initial encounter; Y93.9 Activity, unspecified; Y99.8 Other external cause status; Y92.9 Unspecified place or not applicable; Z79.899 Other long term (current) drug therapy; Z71.51 Drug abuse counseling and surveillance of drug abuser; Z23 Encounter for immunization
CPT/HCPCS: 36415; 70450; 71045; 72125; 80053; 80307; 82947; 83690; 84484; 85025; 85730; 90471; 90715; 93005; 96360; 96361; 99285

== ENCOUNTER → 2023-10-18 01:42 | Outpatient (BNV) | payer SELFPAY | PROVIDERS: Emergency Provider Emergency Medicine Emergency Medical Services; Visit Provider Internal Medicine Cardiovascular Disease | DX: R00.0 Tachycardia, unspecified (principal); T50.901A Poisoning by unspecified drugs, medicaments and biological substances, accidental (unintentional), initial encounter | CPT/HCPCS: 93010 ==